=== PATIENT | male | born 1965 | race Asian ===

== ENCOUNTER 2020-12-20 00:09 | Emergency (ER) | payer BC, OTHER ==
[~2020-12-20] VITALS: Ht 167.6 cm; Wt 69.9 kg
--- NOTE | 2020-12-20 00:15 | NUR ---
PT BIBFAMILY C/O TOP LEFT FOOT PAIN AND SWELLING X 2DAYS, WORSE TODAY. PT AAOX4 BREATHING EVENLY AND UNLABORED. PT STATES THE "PAIN IS WORSE AFTER WORKING OUT AND WEARING TIGHT SHOES TODAY." UPON ASSESSMENT REDNESS AND PAIN ON TOP OF LEFT FOOT UNDER 2ND TOE. MD AT BEDSIDE FOR EVAL. PT ATTACHED TO MONITOR AND POX. PT GIVEN BLANKET AND CALL LIGHT WITHIN REACH
[2020-12-20] MEDS ORDERED: SULF1TAB48 PO (00:21)
[2020-12-20] MEDS ORDERED: CEPH500T PO (00:21)
[2020-12-20] MEDS ORDERED: SULFAMETH/TRIMETH 800/160 MG 1 UDTAB TABLET ONE (00:26)
[2020-12-20] MEDS ORDERED: CEPHALEXIN MONOHYDRATE 500 MG CAPSULE PO ONE (00:26)
[2020-12-20] MEDS: CEPHALEXIN MONOHYDRATE 500 MG CAPSULE PO ONE (00:27)
[2020-12-20] MEDS: SULFAMETH/TRIMETH 800/160 MG 1 UDTAB TABLET PO ONE (00:27)
--- NOTE | 2020-12-20 00:30 | NUR ---
Patient discharged to home in stable condition. Written and verbal after care instructions given. Patient verbalizes understanding of instruction. PT ambulatory with a steady gait
[2020-12-20 00:33] VITALS: BP 137/75
== END 2020-12-20 00:30 | disposition home or self-care (01) ==
LOC: ER 00:15
DX: L03.116 Cellulitis of left lower limb (principal); I10 Essential (primary) hypertension